=== PATIENT | male | born 1955 | race Two or more races ===

== ENCOUNTER 2019-04-22 20:07 | Inpatient (IN) | payer MEDICAID ==
[~2019-04-22] VITALS: Ht 170.2 cm; Wt 82.1 kg
--- NOTE | 2019-04-22 20:13 | Emergency Room Report ---
History of Present Illness General Chief Complaint: Altered Mental Status Source: Family Member, EMS Present Illness HPI Patient is a 63-year-old male who presented after increased altered mental status. Patient a prior history of metastatic pancreatic cancer. Patient had undergone chemotherapy approximately 3 weeks ago and subsequently had been having persistent altered mental status. Patient was noted to have previous been hospitalized at [facility]. Per patient's daughter he developed some type of blood infection and subsequently was hospitalized. Patient was currently in hospice. He was still receiving IV antibiotics as well as IV pain medications.Per the patient's daughter he had recently been placed on hospice and had been having increased jaundice for the past 3 weeks. Patient had not been known to have any prior history of brain metastases. Allergies: Coded Allergies: No Known Allergies (Unverified , 04/22/19) Patient History Past Medical History: see triage record Reviewed Nursing Documentation: PMH: Agreed; PSxH: Agreed Review of Systems All Other Systems: limited - By mental status Physical Exam Vital Signs Date Time Temp Pulse Resp B/P (MAP) Pulse Ox O2 Delivery O2 Flow Rate FiO2 04/22/19 20:03 98.1 80 18 117/59 (78) 96 Room Air Sp02 EP Interpretation: reviewed, normal General Appearance: cachetic, lethargic, Chronically Ill Head: atraumatic Eyes: bilateral eye scleral icterus ENT: normal ENT inspection, hearing grossly normal Neck: normal inspection, supple, no bony tend, limited range of motion Respiratory: normal inspection, lungs clear, normal breath sounds, no respiratory distress, no retraction, no wheezing Cardiovascular #1: regular rate, rhythm, no edema Gastrointestinal: normal bowel sounds, non tender, soft, no guarding, no hernia Genitourinary: no CVA tenderness, other - baxter catheter Musculoskeletal: normal inspection, back normal, normal range of motion Neurologic: aphasia, motor weakness, other - head deviated to left Psychiatric: depressed affect Skin: no rash, jaundice Medical Decision Making Diagnostic Impression: Primary Impression: Altered mental status Additional Impressions: Primary pancreatic cancer with metastasis to other site Sepsis DNR (do not resuscitate) ER Course Patient is a 63-year-old male brought in by EMS for increased generalized weakness and lethargy. Differential diagnosis include was not limited to cholangitis, hepatic encephalopathy, urinary tract infection, brain metastases among others. Because of complexity of patient's case laboratory testing and imaging studies were ordered. Patient noted to have elevated white blood count as well as some evidence of current urinary infection. Patient was noted to have prior DNR status per his daughter. Daughter states that patient was not to be intubated or resuscitated if his heart stopped. She states that he had been in hospice and she was unsatisfied with the care he was receiving at that hospice. Patient does not appear to be in any acute discomfort. Patient's pain medications had previously been limited due to episodes of hypotension. Given the patient's history of jaundice as well as metastatic cancer patient likely has some biliary obstruction. Patient was still receiving IV antibiotics and patient was to receive IV fluids as well as IV antibiotics per patient's family member.Dr. Aubrey Richardson was contacted for inpatient management due to primary care physician. Labs Test 04/22/19 20:20 04/22/19 20:38 White Blood Count 13.9 K/UL (4.8-10.8) Red Blood Count 2.61 M/UL (4.70-6.10) Hemoglobin 7.4 G/DL (14.2-18.0) Hematocrit 21.2 % (42.0-52.0) Mean Corpuscular Volume 81 FL (80-99) Mean Corpuscular Hemoglobin 28.3 PG (27.0-31.0) Mean Corpuscular Hemoglobin Concent 34.8 G/DL (32.0-36.0) Red Cell Distribution Width 16.4 % (11.6-14.8) Platelet Count 423 K/UL (150-450) Mean Platelet Volume 5.5 FL (6.5-10.1) Neutrophils (%) (Auto) % (45.0-75.0) Lymphocytes (%) (Auto) % (20.0-45.0) Monocytes (%) (Auto) % (1.0-10.0) Eosinophils (%) (Auto) % (0.0-3.0) Basophils (%) (Auto) % (0.0-2.0) Differential Total Cells Counted 100 Neutrophils % (Manual) 83 % (45-75) Lymphocytes % (Manual) 2 % (20-45) Monocytes % (Manual) 5 % (1-10) Eosinophils % (Manual) 0 % (0-3) Basophils % (Manual) 0 % (0-2) Myelocytes % 2 % (0-0) Band Neutrophils 8 % (0-8) Nucleated Red Blood Cells 3 /100 WBC Platelet Estimate Adequate Platelet Morphology Normal Polychromasia 1+ Anisocytosis 2+ Microcytosis 1+ Target Cells Occasional Prothrombin Time 15.9 SEC (9.30-11.50) Prothromb Time International Ratio 1.5 (0.9-1.1) Activated Partial Thromboplast Time 24 SEC (23-33) Sodium Level 141 MMOL/L (136-145) Potassium Level 3.7 MMOL/L (3.5-5.1) Chloride Level 109 MMOL/L (98-107) Carbon Dioxide Level 24 MMOL/L (21-32) Anion Gap 8 mmol/L (5-15) Blood Urea Nitrogen 14 mg/dL (7-18) Creatinine 0.8 MG/DL (0.55-1.30) Estimat Glomerular Filtration Rate > 60 mL/min (>60) Glucose Level 186 MG/DL (74-106) Lactic Acid Level 1.10 mmol/L (0.4-2.0) Calcium Level 7.6 MG/DL (8.5-10.1) Total Bilirubin 16.6 MG/DL (0.2-1.0) Direct Bilirubin 12.2 MG/DL (0.0-0.3) Aspartate Amino Transf (AST/SGOT) 121 U/L (15-37) Alanine Aminotransferase (ALT/SGPT) 64 U/L (12-78) Alkaline Phosphatase 904 U/L (46-116) Total Creatine Kinase 81 U/L (26-308) Creatine Kinase MB 2.7 NG/ML (0.0-3.6) Creatine Kinase MB Relative Index 3.3 Troponin I 0.000 ng/mL (0.000-0.056) Total Protein 5.1 G/DL (6.4-8.2) Albumin 1.0 G/DL (3.4-5.0) Globulin 4.1 g/dL Albumin/Globulin Ratio 0.2 (1.0-2.7) Urine Color Brown Urine Appearance Very cloudy Urine pH 5 (4.5-8.0) Urine Specific Antoine 1.020 (1.005-1.035) Urine Protein 2+ (NEGATIVE) Urine Glucose (UA) Negative (NEGATIVE) Urine Ketones 1+ (NEGATIVE) Urine Blood 2+ (NEGATIVE) Urine Nitrite Positive (NEGATIVE) Urine Bilirubin 3+ (NEGATIVE) Urine Ictotest Positive (NEGATIVE) Urine Urobilinogen 4 MG/DL (0.0-1.0) Urine Leukocyte Esterase 3+ (NEGATIVE) Urine RBC 2-4 /HPF (0 - 0) Urine WBC 30-40 /HPF (0 - 0) Urine Squamous Epithelial Cells None /LPF (NONE/OCC) Urine Bacteria Many /HPF (NONE) Urine Yeast Many /HPF (NONE) Last Vital Signs Date Time Temp Pulse Resp B/P (MAP) Pulse Ox O2 Delivery O2 Flow Rate FiO2 04/22/19 20:03 98.1 80 18 117/59 (78) 96 Room Air Status: unchanged Disposition: ADMITTED INPATIENT Condition: Serious Parag Flanagan MD April 22, 2019 20:13
[2019-04-22] MEDS ORDERED: Cefepime HCl 1 GM in D5W 55 ML IVPB ONE (20:15)
[2019-04-22 20:30] VITALS: BP 117/59
--- NOTE | 2019-04-22 20:30 | NUR ---
ER Nurse Note: Pt BIBA from SNF with daugher c/o increased AMS. Pt was recently discharged from another hospital today for a blood infection. Per daughter, pt received chemo 3 weeks ago and has increased AMS since. Pt a&ox0, VSS, jaundiced, stable. Pt has baxter cath and IV line prior to admission. ERMD at pt side; will continue to [facility].
[2019-04-22 20:40] LABS: HEMATOCRIT 21.2 % (42.0-52.0); HEMOGLOBIN 7.4 G/DL (14.2-18.0); MEAN CORPUSCULAR VOLUME 81 FL (80-99); PLATELET COUNT 423 K/UL (150-450); RED BLOOD COUNT 2.61 M/UL (4.70-6.10); RED CELL DISTRIBUTION WIDTH 16.4 % (11.6-14.8); WHITE BLOOD COUNT 13.9 K/UL (4.8-10.8)
[2019-04-22 20:52] LABS: INR 1.5 (0.9-1.1)
[2019-04-22 20:56] LABS: ANION GAP 8 mmol/L (5-15); BLOOD UREA NITROGEN 14 mg/dL (7-18); CALCIUM 7.6 MG/DL (8.5-10.1); CARBON DIOXIDE 24 MMOL/L (21-32); CHLORIDE 109 MMOL/L (98-107); CREATININE 0.8 MG/DL (0.55-1.30); POTASSIUM 3.7 MMOL/L (3.5-5.1); SODIUM 141 MMOL/L (136-145)
[2019-04-22 21:09] LABS: APPEARANCE,URINE VERY CLOUDY; BILIRUBIN, URINE 3+ (NEGATIVE); COLOR,URINE BROWN; GLUCOSE, URINE (UA) NEGATIVE (NEGATIVE); KETONES,URINE 1+ (NEGATIVE); LEUKOCYTE ESTERASE ,URINE 3+ (NEGATIVE); NITRITE,URINE POSITIVE (NEGATIVE); PH,URINE 5 (4.5-8.0); PROTEIN,URINE 2+ (NEGATIVE); UROBILINOGEN,URINE 4 MG/DL (0.0-1.0)
[2019-04-22 21:09] LABS: ALANINE AMINOTRANSFERASE 64 U/L (12-78); ALBUMIN/GLOBULIN RATIO 0.2 (1.0-2.7); ALKALINE PHOSPHATASE 904 U/L (46-116); ASPARTATE AMINO TRANSFERASE 121 U/L (15-37); BILIRUBIN,TOTAL 16.6 MG/DL (0.2-1.0); CKMB 2.7 NG/ML (0.0-3.6); CREATINE KINASE 81 U/L (26-308)
[2019-04-22 21:11] LABS: BILIRUBIN,DIRECT 12.2 MG/DL (0.0-0.3)
[2019-04-22] MEDS ORDERED: Piperacillin/Tazobactam 3.375 GM in NS 110 ML IVPB ONE (21:30)
[2019-04-22 21:55] VITALS: BP 107/47
--- NOTE | 2019-04-22 21:59 | NUR ---
ER Nurse Note: Pt cleaned; 1BM, small and soft. Wound found; mid sacral, 1x1 circular wound, no drainage, redness. Wound found; left heel; skin intact, redness. Pt has redness between groin. Pt came with nieves baxter.
--- NOTE | 2019-04-22 22:21 | NUR ---
ER Nurse Note: Report given to Matt RN in [place] for continuity of care. No belongings with pt. Informed Matt that pt has IV that was established prior to admission, asked if he wants it to be removed, Matt stated to keep it. Original baxter DC, new baxter inserted by RN. Pt a&ox0, VSS, stable for transport. Contact info: daughterJohn .
[2019-04-22] MEDS ORDERED: Morphine Sulfate 2mg/ml Inj(IV/IM USE ONLY) IVP PRN (23:15)
--- NOTE | 2019-04-22 23:25 | NUR ---
NURSE NOTES: Patient in bed, nonverbal. Responds to pain and touch. Skin is warm and dry, noted with sacral skin tear, pictures taken. Patient noted with jaundice. Abdomen is soft. Iv site on the right arm. Call light is at bedside. Bed in low and locked position. No belongings noted. Will continue plan of care.
--- NOTE | 2019-04-22 23:27 | NUR ---
NURSE NOTES: Contacted primary MD, orders received. Did not give DVT prophylaxis order at this time and code status. Will follow up diet with family or patient.
[2019-04-23] VITALS: BP 96/49
[2019-04-23 04:00] VITALS: BP 115/58
--- NOTE | 2019-04-23 06:41 | NUR ---
NURSE NOTES: Enema Given as ordered.
--- NOTE | 2019-04-23 06:56 | NUR ---
NURSE NOTES: Spoke to daughter, wishes DNR DNI. Will inform charge nurse and next shift.
--- NOTE | 2019-04-23 07:37 | NUR ---
HAND-OFF: Report given to JOYCELYN Ryan.
--- NOTE | 2019-04-23 07:54 | NUR ---
NURSE NOTES: pt in bed with no sob nor in any form of distress noted. Breathing regular and unlabored. denies pain at this time. bed in lowest position. call light within reach at all time. will continue to monitor
[2019-04-23 08:00] VITALS: BP 121/62
[2019-04-23] MEDS ORDERED: Lactulose 20gm/30ml UDC ORAL SCH (09:00)
--- NOTE | 2019-04-23 10:49 | Diagnostic Imaging Report ---
Indication: Dyspnea Comparison: None A single view chest radiograph was obtained. Findings: Cardiomediastinal appearance is within normal limits for age. The lungs are clear. Pulmonary vascularity is appropriate. The diaphragmatic contour is smooth and costophrenic angles are sharp. No pleural effusions are identified. The bones are unremarkable. Impression: No acute findings
--- NOTE | 2019-04-23 11:39 | NUR ---
Social Work This Sw received a consult to address the code status. Tgis Sw met with patient who appears jaundice and unresponsive. This Sw contacted patients daughter, John Bailey ([phone]) who believes patient is actively dying. Daughter explains patient was at [facility] and does not want him discharged back to this facility (does not feel they were providing good care there). Daughter is requesting discharge today, to home on Hospice (with multiple family members to provide 24 hour). This Sw completed the POLST with daughter, who is requesting DNR, comfort measures. The daughter requested the following Hospice provider: [facility] ([phone] fax: [phone]) Patient will require an ambulance to transport to the following address: [address] [place] [id number] (15-20 steps) Nursing aware to obtain orders for Hospice and discharge to home today. Dir. Keila Case Management informed as well. Addendum: 04/23/19 at 1322 by ANASTACIA CASTRO Polst placed on front of patients chart for M.D to sign.
[2019-04-23 12:00] VITALS: BP 117/59
--- NOTE | 2019-04-23 12:33 | NUR ---
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
--- NOTE | 2019-04-23 13:28 | NUR ---
RD ASSESSMENT & RECOMMENDATIONS SEE CARE ACTIVITY FOR COMPLETE ASSESSMENT DAILY ESTIMATED NEEDS: Needs based on Mets ca, 71kg adj 25-35 kcals/kg 3973-0652 total kcals 1-2 g protein/kg 71-142 g total protein 25-30 mL/kg 8530-1572 total fluid mLs NUTRITION DIAGNOSIS: Altered nutrition related lab values r/t mets ca, jaundice as evidenced by T bili 16.6, elev AST, low Hgb 7.4. CURRENT DIET: NPO PO DIET RECOMMENDATIONS: Liberalized, as appropriate, texture as tolerated ADDITIONAL RECOMMENDATIONS: 1) [employer] M[employer]ER eval for texture 2) Comfort measures only, diet as tolerated 3) Ensure as tolerated; Glucerna w/ elev BG 4) F/up w/ WC eval 5) F/up w/ H&P
--- NOTE | 2019-04-23 15:16 | NUR ---
OIL GAS AND PIPE TESTER NOTES SPOKE WITH PT'S DAUGHTER, PT TO GO HOME WITH [facility], INQUIRY SENT. WILL FOLLOW UP.
--- NOTE | 2019-04-23 15:45 | NUR ---
NURSE NOTES: pt discharged to home with hospice care. pt was picked up by ambulance with stable condition. pt is being discharged with baxter catheter in placed. daughter (John) made aware of pt's discharge to home with hospice. pt has no belongings. iv removed and covered with gauze and taped.
--- NOTE | 2019-04-24 00:31 | History and Physical Report ---
DATE OF ADMISSION: 04/22/2019 NOTE: "VERY POOR AUDIO QUALITY" HISTORY OF PRESENT ILLNESS: This is a 63-year-old male who has past medical history of metastatic pancreatic CA, who came with altered mental status, jaundice, nonverbal, opens his eyes, blindness, and daughter is on bedside. His daughter and his mother decided they wanted to take the patient to their home with hospice. They understood that if the patient we are not going to take it. PAST MEDICAL HISTORY: Metastatic pancreatic CA. MEDICATIONS: None. ALLERGIES: NKA. PHYSICAL EXAMINATION: GENERAL: This is an elderly male, who is currently nonverbal and lethargic. VITAL SIGNS: Blood pressure is 130/70, pulse 74, and respirations 18. SKIN: Jaundiced. HEENT: Eyes are open. NECK: Supple. CHEST: Bilaterally few crackles. CARDIOVASCULAR: Regular rhythm. Tachycardia. ABDOMEN: Soft. Positive bowel sounds. Nontender. EXTREMITIES: No CCE. NEUROLOGICAL: Nonverbal, bedbound, and lethargic. ASSESSMENT AND PLAN: Metastatic pancreatic CA, prognosis, discussed with the daughter. We will call the hospice and discharge plan to home with comfort care. DNR papers are signed. We will discuss with and discuss with egg caser and charge nurse. Santosh Richardson M.D. DR: ARTURO JOB#: [id number] CC:
--- NOTE | 2019-04-25 12:54 | Discharge Summary ---
Discharge Summary Discharge Summary _ DATE OF ADMISSION: 04/22/2019 DATE OF DISCHARGE: DISCHARGED BY: Dr. Cueva REASON FOR ADMISSION: 63 years old male with past medical history of metastatic pancreatic cancer, hypertension, diabetes mellitus, history of CVA, status post chemotherapy approximately 3 weeks ago , presented for altered mental status . Patient had previous hospitalization at [facility] for blood infection , as per patient's daughter. Patient currently under hospice services and still was receiving IV antibiotics and pain management. Daughter reported increased jaundice for the last 3 weeks. Upon evaluation vital signs were stable. Laboratory work-up revealed leukocytosis 13.9, hemoglobin 7.4 ,hematocrit 21.2 . INR 1.5. Total bilirubin 16.6, direct bilirubin 12.2 . AST 121, ALT 64. Troponin negative. Albumin 1.0. Urinalysis revealed gross evidence of UTI with pyuria and many bacteria along with the +2 protein and hematuria. Chest x-ray revealed no acute findings. Given the patient's history of jaundice is metastatic history of pancreatic metastatic cancer and elevated bilirubin patient likely has some. Obstruction patient still is receiving IV antibiotic under hospice care Patient admitted for further management. HOSPITAL COURSE: Patient was admitted to medical surgical floor. Grave prognosis was discharged with patient daughter, who agreed to continue with hospice services. Hospice was contacted. Given the patient's history of jaundice , metastatic pancreatic cancer and elevated bilirubin, patient likely had biliary obstruction. While in the hospital, patient received IV hydration, analgesia, and comfort care Patient was discharged home with hospice services After discussion with patient's daughter, given DNR status and grave prognosis , patient was discharged home with the hospice services to follow. Being o FINAL DIAGNOSES: Metastatic pancreatic cancer Altered level of consciousness Sepsis Comfort care DISCHARGE MEDICATIONS: See Medication Reconciliation list. DISCHARGE INSTRUCTIONS: Patient was discharged home with hospice services. I have been assigned to dictate discharge summary for this account. I was not involved in the patient's management. Josephine Paige NP Apr 25, 2019 12:54
== END 2019-04-23 15:45 | disposition hospice, home (50) | DRG 720 ==
LOC: EDBD 20:07 → EMR 21:05 → 4E 21:08 → EDBEDREQ 21:53
DX: A41.9 Sepsis, unspecified organism (principal); C25.9 Malignant neoplasm of pancreas, unspecified; C79.89 Secondary malignant neoplasm of other specified sites; N39.0 Urinary tract infection, site not specified; Z66 Do not resuscitate; Z51.5 Encounter for palliative care; I10 Essential (primary) hypertension; E11.9 Type 2 diabetes mellitus without complications; Z86.73 Personal history of transient ischemic attack (TIA), and cerebral infarction without residual deficits; Z74.01 Bed confinement status
CPT/HCPCS: 36415; 71045; 80053; 81003; 82248; 82550; 82553; 82962; 83605; 84484; 85007; 85025; 85610; 85730; 86850; 86900; 86901; 87040; 87081; 87086; 93005; 96365; 96367; 96368; 99285